=== PATIENT | female | born 1955 | race Caucasian/White ===

== ENCOUNTER 2020-12-27 11:32 | Inpatient (IN) | payer OTHER ==
[~2020-12-27] VITALS: Ht 165.1 cm; Wt 90.2 kg
[~2020-12-27 11:32] MED LIST: ALLERCLEAR D-21 EACH PO; ASPI325 PO; ATEN25 PO; CIPR500 PO; FLUSAL2505 INH; LISI5 PO; [UNRECOGNIZED DRUG - OTHER]; [UNRECOGNIZED DRUG - SUPPLY]
[2020-12-27 13:21] LABS: Alanine Aminotransfer (ALT/SGP 146 U/L (12-78); Albumin, Blood 3.2 g/dL (3.4-5.0); Albumin/Globulin Ratio 0.9 (0.8-1.8); Alk Phos 57 U/L (50-136); Anion Gap 15 mmol/L (6-16); Aspartate Aminotrans (AST/SGOT 184 U/L (12-37); Bilirubin, Total 1.3 mg/dL (0.1-1.0); Blood Urea Nitrogen 9 mg/dL (8-24); Bun/Creatinine Ratio 17.8 (12.0-20.0); CO2, Blood 19 mmol/L (21-32); Calcium, Blood 8.1 mg/dL (8.5-10.1); Chloride, Blood 66 mmol/L (98-108); Creatinine, Blood 0.51 mg/dL (0.40-1.00); Globulin, Blood 3.6 g/dL (2.2-4.0); Glomerular Filtration Rate >60 (60-); Glucose, Blood 141 mg/dL (70-99); Potassium, Blood 2.7 mmol/L (3.5-5.5); Sodium, Blood 100 mmol/L (136-145); Total Protein, Blood 6.8 g/dL (6.4-8.2)
[2020-12-27 14:33] LABS: Magnesium, Blood 1.9 mg/dL (1.6-2.4); Phosphorus, Blood 1.4 mg/dL (2.5-4.9)
[2020-12-27] MEDS ORDERED: LOSA50 PO (14:52)
[2020-12-27] MEDS ORDERED: ATEN50 PO (14:52)
[2020-12-27] MEDS ORDERED: SPIRIVA RESPIMAT4 G3 INH (14:52)
[2020-12-27] MEDS ORDERED: MONT10T PO (14:52)
[2020-12-27 15:32] LABS: BASOPHILS ABSOLUTE AUTO 0.07 K/mm3 (0.00-0.23); BASOPHILS PERCENT AUTO 0 % (0-2); EOSINOPHILS ABSOLUTE AUTO 0.06 K/mm3 (0.00-0.68); EOSINOPHILS PERCENT AUTO 0 % (0-6); Hematocrit 37.2 % (33.0-51.0); IMMATURE GRAN ABSOLUTE AUTO 0.87 K/mm3 (0.00-0.10); IMMATURE GRAN PERCENT AUTO 4 % (0-1); LYMPHOCYTES ABSOLUTE AUTO 1.08 K/mm3 (0.84-5.20); LYMPHOCYTES PERCENT AUTO 5 % (21-46); MONOCYTES ABSOLUTE AUTO 0.89 K/mm3 (0.16-1.47); MONOCYTES PERCENT AUTO 4 % (4-13); Mean Corpuscular Volume 78 fL (80-100); Mean Platelet Volume 10.3 fL (9.1-12.4); NEUTROPHILS ABSOLUTE AUTO 19.69 K/mm3 (1.96-9.15); NEUTROPHILS PERCENT AUTO 87 % (41-73); Platelet Count 228 K/mm3 (150-400); RDW Coefficient Variation 11.7 % (11.7-14.2); RDW Standard Deviation 33.2 fL (35.1-46.3); Red Blood Cell Count 4.77 M/mm3 (3.80-5.20); White Blood Cell Count 22.66 K/mm3 (4.00-11.30)
[2020-12-27 15:38] LABS: Hemoglobin 14.6 g/dL (11.5-16.0); Mean Corpuscular HGB 30.6 pg (26.0-34.0)
[2020-12-27 15:43] LABS: Mean Corpuscular HGB Conc 39.2 g/dL (31.5-36.5)
[2020-12-27 16:01] LABS: Anion Gap 15 mmol/L (6-16); Blood Urea Nitrogen 9 mg/dL (8-24); Bun/Creatinine Ratio 14.5 (12.0-20.0); CO2, Blood 23 mmol/L (21-32); Calcium, Blood 7.8 mg/dL (8.5-10.1); Chloride, Blood 66 mmol/L (98-108); Creatinine, Blood 0.62 mg/dL (0.40-1.00); Glomerular Filtration Rate >60 (60-); Glucose, Blood 122 mg/dL (70-99); Potassium, Blood 2.5 mmol/L (3.5-5.5); Sodium, Blood 104 mmol/L (136-145)
[2020-12-27 19:25] LABS: Anion Gap 18 mmol/L (6-16); Blood Urea Nitrogen 8 mg/dL (8-24); Bun/Creatinine Ratio 17.9 (12.0-20.0); CO2, Blood 20 mmol/L (21-32); Chloride, Blood 69 mmol/L (98-108); Creatinine, Blood 0.45 mg/dL (0.40-1.00); Glomerular Filtration Rate >60 (60-); Glucose, Blood 106 mg/dL (70-99); Potassium, Blood 2.8 mmol/L (3.5-5.5); Sodium, Blood 107 mmol/L (136-145)
[2020-12-27 23:46] LABS: Anion Gap 13 mmol/L (6-16); Blood Urea Nitrogen 7 mg/dL (8-24); Bun/Creatinine Ratio 13.2 (12.0-20.0); CO2, Blood 20 mmol/L (21-32); Calcium, Blood 7.5 mg/dL (8.5-10.1); Chloride, Blood 76 mmol/L (98-108); Creatinine, Blood 0.53 mg/dL (0.40-1.00); Glomerular Filtration Rate >60 (60-); Glucose, Blood 88 mg/dL (70-99); Sodium, Blood 109 mmol/L (136-145)
[2020-12-28 03:35] LABS: BASOPHILS ABSOLUTE AUTO 0.05 K/mm3 (0.00-0.23); BASOPHILS PERCENT AUTO 0 % (0-2); EOSINOPHILS ABSOLUTE AUTO 0.03 K/mm3 (0.00-0.68); EOSINOPHILS PERCENT AUTO 0 % (0-6); Hematocrit 34.8 % (33.0-51.0); IMMATURE GRAN ABSOLUTE AUTO 0.33 K/mm3 (0.00-0.10); IMMATURE GRAN PERCENT AUTO 2 % (0-1); LYMPHOCYTES ABSOLUTE AUTO 1.18 K/mm3 (0.84-5.20); LYMPHOCYTES PERCENT AUTO 6 % (21-46); MONOCYTES ABSOLUTE AUTO 0.83 K/mm3 (0.16-1.47); MONOCYTES PERCENT AUTO 4 % (4-13); Mean Corpuscular Volume 78 fL (80-100); Mean Platelet Volume 9.6 fL (9.1-12.4); NEUTROPHILS ABSOLUTE AUTO 18.85 K/mm3 (1.96-9.15); NEUTROPHILS PERCENT AUTO 89 % (41-73); Platelet Count 194 K/mm3 (150-400); RDW Coefficient Variation 11.9 % (11.7-14.2); RDW Standard Deviation 33.9 fL (35.1-46.3); Red Blood Cell Count 4.45 M/mm3 (3.80-5.20); White Blood Cell Count 21.27 K/mm3 (4.00-11.30)
[2020-12-28 03:36] LABS: Hemoglobin 13.7 g/dL (11.5-16.0); Mean Corpuscular HGB 30.8 pg (26.0-34.0); Mean Corpuscular HGB Conc 39.4 g/dL (31.5-36.5)
[2020-12-28 03:54] LABS: Anion Gap 11 mmol/L (6-16); Blood Urea Nitrogen 6 mg/dL (8-24); Bun/Creatinine Ratio 9.3 (12.0-20.0); CO2, Blood 23 mmol/L (21-32); Calcium, Blood 7.7 mg/dL (8.5-10.1); Chloride, Blood 77 mmol/L (98-108); Creatinine, Blood 0.65 mg/dL (0.40-1.00); Glomerular Filtration Rate >60 (60-); Glucose, Blood 88 mg/dL (70-99); Potassium, Blood 2.9 mmol/L (3.5-5.5); Sodium, Blood 111 mmol/L (136-145)
[2020-12-28 07:31] LABS: Magnesium, Blood 1.9 mg/dL (1.6-2.4)
[2020-12-28 07:37] LABS: Anion Gap 12 mmol/L (6-16); Blood Urea Nitrogen 7 mg/dL (8-24); CO2, Blood 22 mmol/L (21-32); Calcium, Blood 7.8 mg/dL (8.5-10.1); Chloride, Blood 80 mmol/L (98-108); Creatinine, Blood 0.64 mg/dL (0.40-1.00); Glomerular Filtration Rate >60 (60-); Glucose, Blood 106 mg/dL (70-99); Potassium, Blood 3.3 mmol/L (3.5-5.5); Sodium, Blood 114 mmol/L (136-145)
[2020-12-28 12:50] LABS: Anion Gap 9 mmol/L (6-16); Blood Urea Nitrogen 6 mg/dL (8-24); CO2, Blood 23 mmol/L (21-32); Calcium, Blood 8.2 mg/dL (8.5-10.1); Chloride, Blood 80 mmol/L (98-108); Creatinine, Blood 0.67 mg/dL (0.40-1.00); Glomerular Filtration Rate >60 (60-); Glucose, Blood 101 mg/dL (70-99); Potassium, Blood 3.3 mmol/L (3.5-5.5); Sodium, Blood 112 mmol/L (136-145)
[2020-12-28 15:29] LABS: Source, Urine Catheter
[2020-12-28 15:34] LABS: Appearance, Urine Hazy (Clear); Bilirubin, Urine Neg (Neg); Blood, Urine 5+ (Neg); Color, Urine Yellow (P-Yellow); Glucose Qualitative, Urine Neg (Neg); Ketones, Urine 3+ (Neg); Leukocyte Esterase, Urine 3+ (Neg); Nitrite, Urine Pos (Neg); Protein, Urine 3+ (Neg); Urobilinogen, Urine NORM (Normal)
[2020-12-28 15:48] LABS: Bacteria Many /hpf
[2020-12-28 15:50] LABS: Squamous Epithelial Cells Few /hpf (Few)
[2020-12-28 16:03] LABS: Osmolality, Urine 328 mos/kg (15-1400)
[2020-12-28 16:04] LABS: Anion Gap 13 mmol/L (6-16); Blood Urea Nitrogen 7 mg/dL (8-24); Bun/Creatinine Ratio 11.9 (12.0-20.0); CO2, Blood 19 mmol/L (21-32); Chloride, Blood 81 mmol/L (98-108); Creatinine, Blood 0.59 mg/dL (0.40-1.00); Glomerular Filtration Rate >60 (60-); Glucose, Blood 99 mg/dL (70-99); Potassium, Blood 3.3 mmol/L (3.5-5.5); Sodium, Blood 113 mmol/L (136-145)
[2020-12-28 16:17] LABS: Sodium, Urine, Random 11 mmol/L (20-110)
--- NOTE | 2020-12-28 19:03 | NUR ---
SUMMARY Assumed care of pt upon arrival to ICU 4 from emergency department at 1452. Pt transferred from ED [facility] to ICU bed using slider sheet and 2 staff. Pt tolerated transfer well. Pt A&O x 4. Answers questions. Follows commands. Verbalizes needs. Pleasant and cooperative with care. Pt on room air. Lungs clear t/o. Pt has loose cough that is unproductive. SR per monitor. BP high, initially. Call placed to Dr Qiu at 1515 to notify of BP and that orders did not permit for labetalol to be given. New orders received. Additionally gave pt cozaar, which she takes at home. Pt has lee catheter in place. Foul-smelling urine sent for urinalysis. Call placed to Dr Qiu at 1620 to notify of most recent by sodium levels and potassium levels. Provider states he will be in to see pt soon and evaluate if pt need hypertonic saline drip restarted. Call placed to Dr Qiu at 1855 to inquire about diet, notify of urinalysis results, and address sodium, as provider has not been in to see pt today. Provider states plan to see pt soon.
--- NOTE | 2020-12-28 19:30 | NUR ---
ASSUMPTION OF CARE RECEIVED REPORT FROM CHRISTIANO BRANTLEY @ 5455. PT STATED SHE IS VERY TIRED, AND APPEARS LETHARGIC, BUT IS ARROUSABLE AND A&0 X4. DENIES PAIN. LUNGS ARE CLEAR THROUGHOUT, SPO2 AT 97% ON RA. OCCASIONAL, NONPRODUCTIVE COUGH. HR 50-60'S, BP'S ARE HYPERTENSIVE, WILL MONITOR AND TREAT WITH LABETALOL PRN. BOWEL TONES ACTIVE, DENIES NAUSEA/VOMITING. TEMP DE LEON PATENT, DRAINING CLEAR, YELLOW URINE. PHYSICIAN ROUNDED, REPORTED URINALYSIS RESULTS- NO NEW ORDERS. REPORTED POTASSIUM AND SODIUM RESULTS, 3% SALINE STARTED AT 30ML/HR UNTIL REACHES 123. NO NEW ORDERS FOR POTASSIUM. REGULAR DIET ORDERS RECEIVED. CONTINUING TO REVIEW ORDERS AND TREAT PRESCRIBED. CALL LIGHT WITHIN REACH.
[2020-12-28 20:18] LABS: Anion Gap 10 mmol/L (6-16); Blood Urea Nitrogen 9 mg/dL (8-24); CO2, Blood 24 mmol/L (21-32); Calcium, Blood 8.5 mg/dL (8.5-10.1); Chloride, Blood 82 mmol/L (98-108); Creatinine, Blood 0.64 mg/dL (0.40-1.00); Glomerular Filtration Rate >60 (60-); Glucose, Blood 124 mg/dL (70-99); Potassium, Blood 3.2 mmol/L (3.5-5.5); Sodium, Blood 116 mmol/L (136-145)
[2020-12-28 23:35] LABS: Anion Gap 8 mmol/L (6-16); Blood Urea Nitrogen 8 mg/dL (8-24); Bun/Creatinine Ratio 10.8 (12.0-20.0); CO2, Blood 23 mmol/L (21-32); Calcium, Blood 8.3 mg/dL (8.5-10.1); Chloride, Blood 86 mmol/L (98-108); Creatinine, Blood 0.74 mg/dL (0.40-1.00); Glomerular Filtration Rate >60 (60-); Glucose, Blood 93 mg/dL (70-99); Potassium, Blood 3.5 mmol/L (3.5-5.5); Sodium, Blood 117 mmol/L (136-145)
[2020-12-29 03:52] LABS: Anion Gap 9 mmol/L (6-16); Blood Urea Nitrogen 8 mg/dL (8-24); CO2, Blood 21 mmol/L (21-32); Calcium, Blood 8.4 mg/dL (8.5-10.1); Chloride, Blood 92 mmol/L (98-108); Creatinine, Blood 0.67 mg/dL (0.40-1.00); Glomerular Filtration Rate >60 (60-); Glucose, Blood 95 mg/dL (70-99); Potassium, Blood 3.9 mmol/L (3.5-5.5); Sodium, Blood 122 mmol/L (136-145)
--- NOTE | 2020-12-29 06:24 | NUR ---
PT SLEPT THROUGHOUT SHIFT. REMAINED A&O X4. PT APPEARS MORE AWAKE AND ORIENTED SODIUM LEVEL IMPROVED. REMAINS ON ROOM AIR, LUNG SOUNDS CLEAR. OCCASIONAL NONPRODUCTIVE COUGH, ESPECIALLY WITH REPOSITIONING. SR IN 50-60'S. GAVE PRN LABETALOL ONCE FOR HYPERTENSION. TEMP DE LEON PATENT DRAINING CLOUDY, YELLOW, MALODOROUS URINE. AWAITING LAB DRAW AT 0700. WILL CONTINUE TO MONITOR AND REPORT TO ONCOMING RN.
--- NOTE | 2020-12-29 07:26 | NUR ---
ASSUMED CARE PT. RESTING COMFORTABLY IN BED, CURRENTLY ON RA. AWAKENS EASILY TO VERBAL STIMULI. PT. DENIES ANY PAIN AT THIS TIME, RR EVEN UNLABORED. VSS THIS AM, DE LEON IN PLACE DRAINING TO GRAVITY. PT. AFEBRILE. 3 PERCENT SALINE PLACED ON SB THIS AM BY PREVIOUS SHIFT WITH LAB DRAW THIS AM. CALL LIGHT IN REACH, BED IN LOW POSITION.
[2020-12-29 07:27] LABS: Anion Gap 7 mmol/L (6-16); Blood Urea Nitrogen 7 mg/dL (8-24); Bun/Creatinine Ratio 9.3 (12.0-20.0); CO2, Blood 22 mmol/L (21-32); Calcium, Blood 8.2 mg/dL (8.5-10.1); Chloride, Blood 94 mmol/L (98-108); Creatinine, Blood 0.76 mg/dL (0.40-1.00); Glomerular Filtration Rate >60 (60-); Glucose, Blood 98 mg/dL (70-99); Sodium, Blood 123 mmol/L (136-145)
--- NOTE | 2020-12-29 10:07 | NUR ---
Gentry of care Pt is resting in bed with eyes closed. Per report the pt has had a poor appetite and needs encouragement with her meals. Her lee is in place and patent. Heart rhythm shows NSR. Pt is currently on RA with O2 sat at 95%. She is able to make her needs known and has her call light in reach.
--- NOTE | 2020-12-29 16:47 | NUR ---
Shift Summary Pt is a/o x 4 with a flat affect. She Declines repostioning in bed and has a poor appetite so PO intake has been encouraged. Sodium labs were discussed with Dr Qiu who ordered once bag of IV fluids which is running now. She has been hypertensive and the Dr was notified and he restarted her home medication as reflected on the EMAR, she does have a Hx of hypertension noted in the chart. She has been sleeping most of the day and a PT order was placed and we are awaiting the eval. Sandoval is still in place and patent. She is able to make her needs known and has her call light in reach. She is medical status and awaiting a bed and has been notified of the potential room move.
[2020-12-29 19:14] LABS: Anion Gap 9 mmol/L (6-16); Blood Urea Nitrogen 9 mg/dL (8-24); Bun/Creatinine Ratio 10.4 (12.0-20.0); CO2, Blood 22 mmol/L (21-32); Calcium, Blood 8.6 mg/dL (8.5-10.1); Chloride, Blood 95 mmol/L (98-108); Creatinine, Blood 0.86 mg/dL (0.40-1.00); Glomerular Filtration Rate >60 (60-); Glucose, Blood 141 mg/dL (70-99); Potassium, Blood 3.9 mmol/L (3.5-5.5); Sodium, Blood 126 mmol/L (136-145)
[2020-12-30 00:10] LABS: Anion Gap 8 mmol/L (6-16); Blood Urea Nitrogen 10 mg/dL (8-24); Bun/Creatinine Ratio 13.1 (12.0-20.0); CO2, Blood 22 mmol/L (21-32); Calcium, Blood 8.3 mg/dL (8.5-10.1); Chloride, Blood 97 mmol/L (98-108); Creatinine, Blood 0.77 mg/dL (0.40-1.00); Glomerular Filtration Rate >60 (60-); Glucose, Blood 110 mg/dL (70-99); Potassium, Blood 4.1 mmol/L (3.5-5.5); Sodium, Blood 127 mmol/L (136-145)
[2020-12-30 06:24] LABS: Hematocrit 37.7 % (33.0-51.0); Mean Corpuscular HGB 31.1 pg (26.0-34.0); Mean Corpuscular HGB Conc 37.1 g/dL (31.5-36.5); Mean Platelet Volume 9.6 fL (9.1-12.4); Platelet Count 236 K/mm3 (150-400); White Blood Cell Count 13.36 K/mm3 (4.00-11.30)
[2020-12-30 06:36] LABS: Anion Gap 6 mmol/L (6-16); Blood Urea Nitrogen 9 mg/dL (8-24); Bun/Creatinine Ratio 11.5 (12.0-20.0); CO2, Blood 24 mmol/L (21-32); Calcium, Blood 8.1 mg/dL (8.5-10.1); Chloride, Blood 98 mmol/L (98-108); Creatinine, Blood 0.78 mg/dL (0.40-1.00); Glomerular Filtration Rate >60 (60-); Glucose, Blood 103 mg/dL (70-99); Potassium, Blood 4.1 mmol/L (3.5-5.5); Sodium, Blood 128 mmol/L (136-145)
[2020-12-30 06:37] LABS: Mean Corpuscular Volume 84 fL (80-100)
--- NOTE | 2020-12-30 06:37 | NUR ---
PATIENT IS ALERT AND ORIENTED X4, SLOW TO RESPOND AND WHEN SHE STATES THE YEAR SHE ALWAYS SAYS THE WRONG YEAR BUT THEN CORRECTS HERSELF AND IS ABLE TO STATE THE CURRECT YEAR. NEURO UNCHANGED ALL SHIFT. 02 SATS 95% ON RA. DRY COUGH. LABETALOL GIVEN ONCE FOR HIGH BP. ABLE TO REPOSITION SELF, NEEDS VERBAL CUES AT TIMES. DE LEON DRAINING YELLOW CLEAR URINE. VSS, NO ACUTE CHANGES. CALL LIGHT IN REACH.
[2020-12-30 07:28] LABS: BAND PERCENT MAN 4 % (0-8); BASOPHILS PERCENT MAN 0 % (0-2); EOSINOPHILS ABSOLUTE MAN 0.13 K/mm3 (0.00-0.68); EOSINOPHILS PERCENT MAN 1 % (0-6); LYMPHOCYTES ABSOLUTE MAN 0.66 K/mm3 (0.84-5.20); LYMPHOCYTES PERCENT MAN 5 % (21-46); METAMYELOCYTE ABSOLUTE MAN 0.13 K/mm3 (0.00-0.00); METAMYELOCYTE PERCENT MAN 1 % (0-0); MONOCYTES ABSOLUTE MAN 0.66 K/mm3 (0.16-1.47); MONOCYTES PERCENT MAN 5 % (4-13); MYELOCYTE ABSOLUTE MAN 0.13 K/mm3 (0.00-0.00); MYELOCYTE PERCENT MAN 1 % (0-0); NEUTROPHILS ABSOLUTE MAN 11.62 K/mm3 (1.96-9.15); SEG NEUTROPHILS PERCENT MAN 83 % (41-73); TOTAL CELLS COUNTED 100
--- NOTE | 2020-12-30 09:00 | NUR ---
ASSUMED CARE / DR Mely FREDERICK: REPORT RECEIVED FROM RUBY Rowley RN. ASSUMED CARE OF THIS PT AT APPROX 0700. ON ASSESSMENT, THE PT IS AWAKE, PLEASANT & COOPERATIVE. SHE IS ORIENTED TO ALL, BUT DOES RESPOND SLOWLY AT TIMES. LS DIM, FINE CRACKLES IN BASES. PT ON RA W/ O2 SATS > 92%. MONITOR SHOWS SB-SR W/ HR 50-70s, HTN W/ SCHEDULED AM MEDS PER EMAR. THE PT HAS NO GI COMPLAINTS & HAS TOLERATED PO INTAKE WELL THIS AM. TEMP DE LEON PATENT/ DRAINING YELLOW URINE. SKIN CONDITION OVERALL CDI, PT IS ABLE TO REPOSITION SELF IN BED W/ MIN ASSIST OR CUES. PROVIDER AT BEDSIDE THIS AM. HE WOULD LIKE TO HAVE A CTs OF THE PT's CHEST & HEAD COMPLETED TO RULE OUT POSSIBLE CAUSES OF PT's HYPONATREMIA ON ADMISSION. ORDERS PLACED. NO OTHER CHANGES AT THIS TIME. WILL CONTINUE TO MONITOR & UPDATE NEEDED.
[2020-12-30 12:36] LABS: Anion Gap 7 mmol/L (6-16); Blood Urea Nitrogen 10 mg/dL (8-24); Bun/Creatinine Ratio 12.1 (12.0-20.0); CO2, Blood 25 mmol/L (21-32); Calcium, Blood 8.7 mg/dL (8.5-10.1); Chloride, Blood 97 mmol/L (98-108); Creatinine, Blood 0.83 mg/dL (0.40-1.00); Glomerular Filtration Rate >60 (60-); Glucose, Blood 97 mg/dL (70-99); Potassium, Blood 3.9 mmol/L (3.5-5.5); Sodium, Blood 129 mmol/L (136-145)
--- NOTE | 2020-12-30 13:56 | NUR ---
ADMIT:12/27/20 DISCHARGE: DX: Hyponatremia CC: [email or web address] ELLIE CALL: RESIDENCE: Home with Spouse CAREGIVER: Juan C Leal, Spouse / Partner, Ebonie Leal, Child, Andrea Leal, Child, DX: CKD-stage 3, COVID-19, HTN, GERD, HTN, see list DME: none CCM: none HOME HEALTH: none SUMMARY: Updated 12/30/20- per chart review with Dr. Jonh Wolf, pt is improving and CT has been ordered. No plan for discharge. Pt being treated also for COVID and UTI. -linow
--- NOTE | 2020-12-30 18:29 | NUR ---
SHIFT SUMMARY: NO ACUTE CHANGES SINCE PRIOR UPDATES. PT REMAINS A&O, MENTATION CONTINUES IMPROVING & PT's AFFECT NOW LESS FLAT. LS COARSE IN BASES, PT HAVING OCCASIONAL COUGH W/ DEEP BREATHING. ON RA W/ O2 SATS > 92%. MONITOR SHOWS SR W/ HR 70s, BP STABLE. THE PT HAS NO GI COMPLAINTS & HAS TOLERATED PO INTAKE WELL. TEMP DE LEON PATENT/ DRAINING YELLOW URINE. SKIN CONDITION OVERALL CDI W/ Q2H REPOSITIONING COMPLETED EITHER BY PT OR W/ STAFF ASSIST. WILL CONTINUE TO MONITOR & REPORT OFF TO ONCOMING RN.
--- NOTE | 2020-12-31 05:00 | NUR ---
SHIFT SUMMARY PT REPORTS SLEEPING WELL THROUGHOUT NIGHT. PT REMAINS ORIENTED TO SELF, EVENT, YEAR, LOCATION AND FOLLOWING COMMANDS. O2 SATURATIONS> 90% ON RA. MONITOR SHOWS SINUS RHYTHM WITH HR 50'S-60'S, HTN AT BEGINNING OF SHIFT, 10mg LABETALOL x2 ADMINISTERED. PT DENIES GI ISSUES. DE LEON REMAINS IN PLACE. CALL LIGHT REMAINS WITHIN REACH.
[2020-12-31 05:13] LABS: Anion Gap 7 mmol/L (6-16); Blood Urea Nitrogen 12 mg/dL (8-24); Bun/Creatinine Ratio 14.9 (12.0-20.0); CO2, Blood 25 mmol/L (21-32); Calcium, Blood 8.6 mg/dL (8.5-10.1); Chloride, Blood 97 mmol/L (98-108); Creatinine, Blood 0.81 mg/dL (0.40-1.00); Glomerular Filtration Rate >60 (60-); Glucose, Blood 107 mg/dL (70-99); Sodium, Blood 129 mmol/L (136-145)
--- NOTE | 2020-12-31 08:21 | NUR ---
UPDATE ASSUMED CARE AT APPROXIMATELY 0730. PT ALERT AND ORIENTED. VS STABLE. O2 SATS REMAIN ABOVE 90% ON RA. HR NSR. PT DENIES ANY PAIN. DE LEON PATENT AND DRAINING CLEAR YELLOW URINE. PT SITTING UP EATING BREAKFAST. BED ASSIGNMENT PROVIDED. REPORT CALLED TO ROBERT ALVARADO. PT TO BE TAKEN TO 336.
--- NOTE | 2020-12-31 09:12 | NUR ---
Assumed Care Received report from Rafia ICU-RN. Patient transferred to room 336 from ICU 4. Slide transfer to bed. A/O and on RA at time of arrival. Nonproductive hoarse cough noted. Settled to room, call light nearby, bed in lowest position. Sandoval present and draining clear yellow urine. Med tele ordered per transfer order.
--- NOTE | 2020-12-31 10:40 | NUR ---
MED TELE PLACED, VERIFIED BY VALENTIN CRANDALL: JESUS 52
--- NOTE | 2020-12-31 12:38 | NUR ---
HYPERTENSION WITH SBP [address] FREDERICK. BP RECHECK AND FOUND TO BE 174/96 HR 61. NO NEW ORDERS. WILL CONTINUE TO MONITOR.
--- NOTE | 2020-12-31 16:11 | NUR ---
12/31/20- pt has history of COVID, day 15. CT was unremarkable. PT and OT have been ordered. Pt has moved from ICU to medical floor. PT saw pt today and are recommending SNF. Prior to coming into the hospital, pt was independent. She lives at home with her spouse in a home that has multiple stairs to get into the home. FWW has been ordered for the pt. -kjw
--- NOTE | 2020-12-31 16:46 | NUR ---
Shift Summary A/Ox3, pleasant and cooperative. Remains fairly weak, worked with PT this shift (see PT note). Denies pain, nausea. No shortness of breath, unlabored breathing. Received V.O. from Dr. Wolf to d/c jesus and d/c NS @ 75. Dr. Wolf is aware of hypertension. Tele placed. No acute changes since assumed care, WCTM.
--- NOTE | 2021-01-01 04:06 | NUR ---
SHIFT SUMMARY: PT IS ALERT AND ORIENTED WITH MINOR CONFUSION. PT IS CALM AND COOPERATIVE WITH CARE, FLAT AFFECT AND A LITTLE SLOW TO RESPOND. PT IS A ONE ASSIST TO THE BATHROOM W/ FWW. PT HAVING HTN, MEDICATING PER EMAR. PT DENIES PAIN, NAUSEA, VOMITING, AND SOB. BED IN LOW POSITION, CALL LIGHT WITHIN REACH. WILL CONTINUE TO MONITOR AND REPORT TO DAY NURSE.
[2021-01-01 07:17] LABS: Anion Gap 10 mmol/L (6-16); Blood Urea Nitrogen 14 mg/dL (8-24); Bun/Creatinine Ratio 19.9 (12.0-20.0); CO2, Blood 24 mmol/L (21-32); Calcium, Blood 9.1 mg/dL (8.5-10.1); Chloride, Blood 95 mmol/L (98-108); Glomerular Filtration Rate >60 (60-); Glucose, Blood 147 mg/dL (70-99); Sodium, Blood 129 mmol/L (136-145)
--- NOTE | 2021-01-01 09:14 | NUR ---
LEFT MESSAGE ON VOICE MAIL; PATIENT KNOWS FIRST NAME, COULD NOT TELL ME HER DATE OF OR LAST NAME. DOES NOT KNOW WHERE SHE IS. 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 RESPONDED WITH [employer]. STS LIVES WITH . WHEN ASKED IF SHE STILL WORKS SAYS YES, BUT CAN NOT TELL ME WHAT SHE DOES AND SAYS WORKS AT "[employer]." UNSURE IF THIS IS ALL NEW OR IF THIS HAS BEEN HER MENTATION. ILDA
--- NOTE | 2021-01-01 13:15 | NUR ---
Echocardiogram performed.
--- NOTE | 2021-01-01 15:49 | NUR ---
01/01/21- per chart review, pt has expressed increase of confusion, nurse notified Dr. Wolf. PT worked with pt and it's noted increase weakness and BP was 207/93. PT is recommending SNF at discharge. CT of chest shows pneumonia. Echo has been ordered and completed. No plan for d/c- kjw
--- NOTE | 2021-01-01 16:25 | NUR ---
ALERT TO SELF. COULD NOT TELL ME HER . APPEARS ABIT "FOGGY". PER P.T. AND DR. FREDERICK SHE WAS A LITTLE BETTER YESTERDAY MENTATION VALENTIN. DENIES PAIN. ON 2LPM. TELE HAS BEEN SR. POOR APPETITE. WCTM
--- NOTE | 2021-01-01 19:24 | NUR ---
RECEIVED REPORT FROM CHRISTIANO VALVERDE.
--- NOTE | 2021-01-02 03:00 | NUR ---
PT DENIED THE NEED TO USE BSC. CALL LT IN REACH.
--- NOTE | 2021-01-02 03:42 | NUR ---
SHIFT SUMMARY: ALERT TO NAME ONLY. ANSWERS "OK" TO ALL QUESTIONS SLOWLY. DOES NOT FOLLOW DIRECTIONS, ANSWERS "OK", CONSTANTLY. DOES NOT APPEAR TO BE IN PAIN OR DISTRESS. ON RA. TOOK MEDS WHOLE WITH SIPS OF WATER. RESTED WELL. REFUSED TOILETING DURING SHIFT. NO ACUTE CHANGES. LAST NA 129. SALINE LOCKED. SR AT 66 ON TELE. WILL CONTINUE TO PROVIDE CARE T/O SHIFT. CALL LT IN REACH.
[2021-01-02 06:27] LABS: Anion Gap 8 mmol/L (6-16); Blood Urea Nitrogen 19 mg/dL (8-24); Bun/Creatinine Ratio 22.6 (12.0-20.0); CO2, Blood 25 mmol/L (21-32); Calcium, Blood 9.7 mg/dL (8.5-10.1); Chloride, Blood 98 mmol/L (98-108); Creatinine, Blood 0.84 mg/dL (0.40-1.00); Glomerular Filtration Rate >60 (60-); Glucose, Blood 110 mg/dL (70-99); Potassium, Blood 3.9 mmol/L (3.5-5.5); Sodium, Blood 131 mmol/L (136-145)
--- NOTE | 2021-01-02 16:42 | NUR ---
01/02/21- PER CHART REVIEW WITH DR. FREDERICK, PLAN IS TO ORDER MRI OF HEAD. THERE ARE ALSO SOCIAL CONCERNS REGARDING AND LACK OF COMMUNICATION. -WILLIAM
--- NOTE | 2021-01-02 18:06 | NUR ---
SHIFT SUMMARY PT AXO TO SELF BUT VERY SLOW TO RESPOND AND ANSWERS "OKAY" TO MOST QUESTIONS. MRI THIS SHIFT, SEE RESULTS. MRI QUESTIONS COMPLETED WITH PATIENT'S SPOUSE ON THE PHONE. DR FREDERICK GIVEN SPOUSE'S CORRECT PHONE NUMBER. PT UP TO BSC WITH 2 ASSIST, FWW AND GB. ON TELE, NSR IN 60'S. BED IN LOW POSITION, CALL LIGHT WITHIN REACH, BED ALARM ON. SWALLOW EVAL ORDERED THIS SHIFT THOUGH PT TOLERATING NECTAR THICK VIA SPOON, NO STRAWS, MEDS ONE AT A TIME IN APPLESAUCE NO THIN LIQUIDS. THIS DIET ORDERED PER DR. FREDERICK. 93% ON RA
--- NOTE | 2021-01-03 01:34 | NUR ---
REPORT GIVEN TO JENNIFER ALVARADO. PATIENT AWAKE, DOES NOT ANSWER ORIENTATION QUESTIONS. IV FLUIDS ORDERED TONIGHT, INITIATED PER ORDERS. PATIENT BEGAN HAVING DEEP COUGH, NON PRODUCTIVE THIS SHIFT. BED LOW AND LOCKED, CALL LIGHT WITHIN REACH, BED ALARM SET.
--- NOTE | 2021-01-03 02:01 | NUR ---
RECEIVED REPORT FROM CHRISTIANO ADAMS. PT LYING IN BED WITH IVF INFUSING. WILL CONTINUE TO PROVIDE CARE. CALL LT IN REACH.
--- NOTE | 2021-01-03 04:10 | NUR ---
SHIFT SUMMARY: APPPEARS MORE ALERT AND A LITTLE BIT MORE VERBAL THIS SHIFT. USING TWO WORDS VS. ONE WORD RESPONSES. CONT IVF INFUSING. ON RA. SR 77 ON TELE. NO ACUTE CHANGES. STILL SLOW TO RESPOND VERBALLLY. WILL CONTINUE TO PROVIDE CARE UNTIL SHIFT REPORT.
[2021-01-03 05:52] LABS: BASOPHILS ABSOLUTE AUTO 0.03 K/mm3 (0.00-0.23); BASOPHILS PERCENT AUTO 0 % (0-2); EOSINOPHILS ABSOLUTE AUTO 0.01 K/mm3 (0.00-0.68); EOSINOPHILS PERCENT AUTO 0 % (0-6); Hemoglobin 14.5 g/dL (11.5-16.0); IMMATURE GRAN ABSOLUTE AUTO 0.42 K/mm3 (0.00-0.10); IMMATURE GRAN PERCENT AUTO 3 % (0-1); LYMPHOCYTES ABSOLUTE AUTO 1.97 K/mm3 (0.84-5.20); LYMPHOCYTES PERCENT AUTO 15 % (21-46); MONOCYTES ABSOLUTE AUTO 1.15 K/mm3 (0.16-1.47); MONOCYTES PERCENT AUTO 9 % (4-13); Mean Corpuscular HGB 30.9 pg (26.0-34.0); Mean Corpuscular HGB Conc 34.5 g/dL (31.5-36.5); Mean Corpuscular Volume 89 fL (80-100); Mean Platelet Volume 8.8 fL (9.1-12.4); NEUTROPHILS ABSOLUTE AUTO 10.02 K/mm3 (1.96-9.15); NEUTROPHILS PERCENT AUTO 74 % (41-73); Platelet Count 333 K/mm3 (150-400); RDW Coefficient Variation 13.7 % (11.7-14.2)
[2021-01-03 06:16] LABS: Alanine Aminotransfer (ALT/SGP 96 U/L (12-78); Albumin, Blood 3.3 g/dL (3.4-5.0); Albumin/Globulin Ratio 0.8 (0.8-1.8); Alk Phos 56 U/L (50-136); Anion Gap 9 mmol/L (6-16); Aspartate Aminotrans (AST/SGOT 32 U/L (12-37); Bilirubin, Total 0.5 mg/dL (0.1-1.0); Blood Urea Nitrogen 23 mg/dL (8-24); Bun/Creatinine Ratio 27.6 (12.0-20.0); CO2, Blood 22 mmol/L (21-32); Calcium, Blood 9.3 mg/dL (8.5-10.1); Chloride, Blood 101 mmol/L (98-108); Creatinine, Blood 0.83 mg/dL (0.40-1.00); Glomerular Filtration Rate >60 (60-); Glucose, Blood 151 mg/dL (70-99); Potassium, Blood 3.9 mmol/L (3.5-5.5); Sodium, Blood 132 mmol/L (136-145); Total Protein, Blood 7.3 g/dL (6.4-8.2)
--- NOTE | 2021-01-03 12:30 | NUR ---
01/03/21- Per chart review, pt has severe neurologic declined, severe hyponatremia and poor prognosis. No discharge plan at this time-madan
--- NOTE | 2021-01-03 18:48 | NUR ---
SHIFT SUMMARY. ALERT, LETHARGIC, NONVERBAL, DOES NOT FOLLOW COMMANDS, HAS BEEN IN BED AND INCONTINENT ALL SHIFT. FAILED SPEECH EVAL, NPO EXCEPT FOR MEDS CRUSHED IN APPLESAUCE. THIS AFTERNOON PT FOUND WITH FIXED GAZE UP TO THE LEFT, PUPILS DILATED 5MM ALTHOUGH REACTIVE TO LIGHT. VSS. DR. KAUFFMAN NOTIFIED OF CHANGE IN CONDITION, SHE WENT TO BEDSIDE FOR EVAL WITH THIS RN, STAT CT ORDERED AND COMPLETED, PENDING RESULTS. THIS RN AND MD SPOKE WITH VIA PHONE, PALLIATIVE CARE SPOKE WITH DAUGHTER VIA PHONE. PT REMAINS FULL CODE.
--- NOTE | 2021-01-03 18:56 | NUR ---
Called to see pt for worsening status. Pt minimally responsive airway patient but some clenching pupils large and trying to look at you but deviate to right. no response to palpation of abdomen. GCS 10 review of symptoms and renal function. pt has similar episode a few years ago with infection with hypertension. Repeat ct and am labs. Updated family of needs physician discussed code status pt will remain full code.
--- NOTE | 2021-01-04 05:06 | NUR ---
SHIFT SUMMARY- PT. AWAKE, NONVERBAL, UNABLE TO FOLLOW COMMANDS DURING THE NIGHT. ON BEDREST, REPOSITIONED FOR COMFORT/PRN. INCONT, ATTENDS IN PLACE. TOLERATED MEDS CRUSHED IN APPLESAUCE WELL. PERFORMED ORAL SUCTIONED PER ORDER. PT. APPEARED COMFORTABLE T/O THE NIGHT, NO APPARENT DISTRESS NOTED. CALL LIGHT WTIHIN REACH, SIDE RAILS UPX3, AND BED ALARM ON FOR SAFETY. WILL CONT TO MONITOR.
[2021-01-04 06:10] LABS: BASOPHILS ABSOLUTE AUTO 0.06 K/mm3 (0.00-0.23); BASOPHILS PERCENT AUTO 0 % (0-2); EOSINOPHILS PERCENT AUTO 0 % (0-6); Hematocrit 46.3 % (33.0-51.0); Hemoglobin 15.7 g/dL (11.5-16.0); IMMATURE GRAN ABSOLUTE AUTO 0.23 K/mm3 (0.00-0.10); IMMATURE GRAN PERCENT AUTO 2 % (0-1); LYMPHOCYTES ABSOLUTE AUTO 2.31 K/mm3 (0.84-5.20); LYMPHOCYTES PERCENT AUTO 15 % (21-46); MONOCYTES ABSOLUTE AUTO 1.52 K/mm3 (0.16-1.47); MONOCYTES PERCENT AUTO 10 % (4-13); Mean Corpuscular HGB 30.9 pg (26.0-34.0); Mean Corpuscular HGB Conc 33.9 g/dL (31.5-36.5); Mean Corpuscular Volume 91 fL (80-100); Mean Platelet Volume 8.8 fL (9.1-12.4); NEUTROPHILS PERCENT AUTO 73 % (41-73); Platelet Count 392 K/mm3 (150-400); RDW Coefficient Variation 13.7 % (11.7-14.2); RDW Standard Deviation 45.5 fL (35.1-46.3); Red Blood Cell Count 5.08 M/mm3 (3.80-5.20); White Blood Cell Count 15.52 K/mm3 (4.00-11.30)
[2021-01-04 06:12] LABS: Albumin, Blood 3.7 g/dL (3.4-5.0); Albumin/Globulin Ratio 0.9 (0.8-1.8); Bilirubin, Total 0.8 mg/dL (0.1-1.0); Bun/Creatinine Ratio 25.2 (12.0-20.0); Calcium, Blood 9.3 mg/dL (8.5-10.1); Creatinine, Blood 1.03 mg/dL (0.40-1.00); Potassium, Blood 4.3 mmol/L (3.5-5.5); Total Protein, Blood 7.7 g/dL (6.4-8.2)
--- NOTE | 2021-01-04 17:34 | NUR ---
PT OPENS EYES TO VERBAL STIMULI AND STARES TO THE RIGHT, THE PT IS NON VERBAL. MOANS WITH TURNING AND OTHER TOUCH STIMULI. THE PT WAS TURNED T/O THE DAY. THE PT WAS SUCTIONED T/O THE DAY. SPEECH THERAPIST EVALUATED THE PT THIS AM THE PT WOULD NOT TAKE ANYTHING PO. THE PT WAS FROTHY AT THE MOUTH SUCTION WAS PROVIDED NEEDED. THE PT SON WAS IN TO SEE HER TODAY AND WAS ABLE TO SPEAK WITH DR. KAUFFMAN REGARDING THE PTS CONDITION. HOB > 45 DEGREE. WILL CONTINUE TO MONITOR AND ASSESS FOR CHANGES
[2021-01-05 05:43] LABS: BASOPHILS ABSOLUTE AUTO 0.05 K/mm3 (0.00-0.23); BASOPHILS PERCENT AUTO 1 % (0-2); EOSINOPHILS PERCENT AUTO 0 % (0-6); Hematocrit 42.5 % (33.0-51.0); IMMATURE GRAN ABSOLUTE AUTO 0.09 K/mm3 (0.00-0.10); IMMATURE GRAN PERCENT AUTO 1 % (0-1); LYMPHOCYTES ABSOLUTE AUTO 2.07 K/mm3 (0.84-5.20); LYMPHOCYTES PERCENT AUTO 19 % (21-46); MONOCYTES PERCENT AUTO 12 % (4-13); Mean Corpuscular HGB 30.2 pg (26.0-34.0); Mean Corpuscular HGB Conc 32.9 g/dL (31.5-36.5); Mean Corpuscular Volume 92 fL (80-100); Mean Platelet Volume 8.7 fL (9.1-12.4); NEUTROPHILS ABSOLUTE AUTO 7.17 K/mm3 (1.96-9.15); NEUTROPHILS PERCENT AUTO 67 % (41-73); Platelet Count 319 K/mm3 (150-400); RDW Standard Deviation 46.6 fL (35.1-46.3); Red Blood Cell Count 4.64 M/mm3 (3.80-5.20); White Blood Cell Count 10.68 K/mm3 (4.00-11.30)
[2021-01-05 06:22] LABS: Albumin, Blood 3.2 g/dL (3.4-5.0); Albumin/Globulin Ratio 0.8 (0.8-1.8); Bun/Creatinine Ratio 29.4 (12.0-20.0); Calcium, Blood 9.2 mg/dL (8.5-10.1); Creatinine, Blood 1.09 mg/dL (0.40-1.00); Globulin, Blood 3.9 g/dL (2.2-4.0); Potassium, Blood 4.1 mmol/L (3.5-5.5); Total Protein, Blood 7.1 g/dL (6.4-8.2)
[2021-01-05 12:23] LABS: Calcium, Blood 8.9 mg/dL (8.5-10.1); Creatinine, Blood 0.94 mg/dL (0.40-1.00)
--- NOTE | 2021-01-05 17:27 | NUR ---
PT OPENS EYES TO VERBAL STIMULI OR NOISE. DOES NOT MAKE GOOD EYE CONTACT. THE PT MOANS THOUGH SHE MIGHT BE TRYING TO COMMUNICATE AT TIMES. THE PT APPEARS TO BE MORE ALERT TODAY COMPARED TO YESTERDAY. THE PT HAS MORE OF A COUGH TODAY COMPARED TO YESTERDAY. BREATH SOUNDS HAD FINE CRACKLES HEARD PT APPEARS TO BE BREATHING EASILY ON RA AT THIS TIME SAT'S > 90%. PTS FAMILY WAS IN TO SEE THE PT DR. KAUFFMAN TALKED WITH THE FAMILY ABOUT THE TX PLAN. PT WAS REPOSITIONED T/O THE DAY, A BED BATH WAS GIVEN. ORAL CARE WAS GIVEN. PT IS NPO DUE TO ASPIRATION RISK, HEAD OF BED ELEVATED TO 45 DEGREE. WILL CONTINUE TO MONITOR FOR CHANGES
[2021-01-05 18:05] LABS: Anion Gap 9 mmol/L (6-16); Blood Urea Nitrogen 33 mg/dL (8-24); Bun/Creatinine Ratio 35.8 (12.0-20.0); CO2, Blood 21 mmol/L (21-32); Chloride, Blood 106 mmol/L (98-108); Creatinine, Blood 0.92 mg/dL (0.40-1.00); Glomerular Filtration Rate >60 (60-); Glucose, Blood 104 mg/dL (70-99); Potassium, Blood 4.6 mmol/L (3.5-5.5); Sodium, Blood 136 mmol/L (136-145)
--- NOTE | 2021-01-05 20:35 | NUR ---
PT DOES NOT TRACK WITH HER EYES. PT IS NON-VERBAL. EYES OPEN. PT MOANS WITH TURNING/REPOSITIONING. PT IS NPO. PHIL - PUPILS 5MM. TELE IN PLACE, NSR AT 85. ATTENDS IN PLACE. PT DOES NOT RESPOND TO VERBAL COMMUNICATION. BED IN LOW POSITION. BED ALARM ON FOR PT SAFETY.
[2021-01-06 05:57] LABS: BASOPHILS ABSOLUTE AUTO 0.05 K/mm3 (0.00-0.23); BASOPHILS PERCENT AUTO 1 % (0-2); EOSINOPHILS ABSOLUTE AUTO 0.01 K/mm3 (0.00-0.68); EOSINOPHILS PERCENT AUTO 0 % (0-6); Hematocrit 41.6 % (33.0-51.0); Hemoglobin 13.9 g/dL (11.5-16.0); IMMATURE GRAN ABSOLUTE AUTO 0.04 K/mm3 (0.00-0.10); IMMATURE GRAN PERCENT AUTO 1 % (0-1); LYMPHOCYTES ABSOLUTE AUTO 1.51 K/mm3 (0.84-5.20); LYMPHOCYTES PERCENT AUTO 21 % (21-46); MONOCYTES ABSOLUTE AUTO 0.92 K/mm3 (0.16-1.47); MONOCYTES PERCENT AUTO 13 % (4-13); Mean Corpuscular HGB 30.8 pg (26.0-34.0); Mean Corpuscular HGB Conc 33.4 g/dL (31.5-36.5); Mean Corpuscular Volume 92 fL (80-100); Mean Platelet Volume 9.2 fL (9.1-12.4); NEUTROPHILS ABSOLUTE AUTO 4.83 K/mm3 (1.96-9.15); NEUTROPHILS PERCENT AUTO 66 % (41-73); Platelet Count 323 K/mm3 (150-400); RDW Coefficient Variation 13.8 % (11.7-14.2); RDW Standard Deviation 46.6 fL (35.1-46.3); Red Blood Cell Count 4.52 M/mm3 (3.80-5.20); White Blood Cell Count 7.36 K/mm3 (4.00-11.30)
[2021-01-06 06:15] LABS: Anion Gap 10 mmol/L (6-16); Blood Urea Nitrogen 29 mg/dL (8-24); Bun/Creatinine Ratio 34.6 (12.0-20.0); CO2, Blood 19 mmol/L (21-32); Calcium, Blood 9.1 mg/dL (8.5-10.1); Chloride, Blood 105 mmol/L (98-108); Creatinine, Blood 0.84 mg/dL (0.40-1.00); Glomerular Filtration Rate >60 (60-); Glucose, Blood 131 mg/dL (70-99); Potassium, Blood 3.7 mmol/L (3.5-5.5); Sodium, Blood 134 mmol/L (136-145)
--- NOTE | 2021-01-06 11:12 | NUR ---
Update 01/06/21- per chart review, pt still has AMS secondary to severity of admitting diagnosis. It is noted that pt continues to deteriorate neurologically. Dr. Jiménez has consulted with [facility] neurologist. -madan
[2021-01-06 13:13] LABS: Anion Gap 10 mmol/L (6-16); Blood Urea Nitrogen 28 mg/dL (8-24); Bun/Creatinine Ratio 35.3 (12.0-20.0); CO2, Blood 19 mmol/L (21-32); Chloride, Blood 106 mmol/L (98-108); Creatinine, Blood 0.79 mg/dL (0.40-1.00); Glomerular Filtration Rate >60 (60-); Glucose, Blood 104 mg/dL (70-99); Potassium, Blood 3.8 mmol/L (3.5-5.5); Sodium, Blood 135 mmol/L (136-145)
--- NOTE | 2021-01-06 16:29 | NUR ---
PT IS ALERT, OPENS EYES TO VERBAL STIMULI. APPEARS TO BE TRACKING MORE TODAY COMPARED TO YESTERDAY. REMAINS NON VERBAL AT THIS TIME,. THE PT DID HAVE SOME WEAK RECEPTIONIST SCHEDULER ON THE RIGHT SIDE DURING THIS AM ASSESSMENT. PT APPEARS TO BE BREATHING EASILY ON RA AT THIS TIME. THE PT WAS REPOSITIONED T/O THE DAY. THE PTS IS AT THE BEDSIDE AT THIS TIME. CALL LIGHT IN REACH, WILL CONTINUE TO MONITOR AND ASSESS FOR CHANGES
--- NOTE | 2021-01-06 17:09 | NUR ---
ISOLATION PRECAUTION PT HAS BEEN QUARANTINED THE EXPECTED TIME. PER DR COKER IT IS OK TO DC ISOLATION TODAY
[2021-01-06 18:29] LABS: Osmolality, Serum 287 mos/KG (275-300)
[2021-01-06 18:46] LABS: Albumin, Blood 3.2 g/dL (3.4-5.0); Anion Gap 10 mmol/L (6-16); Blood Urea Nitrogen 28 mg/dL (8-24); Bun/Creatinine Ratio 34.9 (12.0-20.0); CO2, Blood 19 mmol/L (21-32); Calcium, Blood 8.9 mg/dL (8.5-10.1); Chloride, Blood 106 mmol/L (98-108); Glomerular Filtration Rate >60 (60-); Glucose, Blood 118 mg/dL (70-99); Magnesium, Blood 2.2 mg/dL (1.6-2.4); Potassium, Blood 3.6 mmol/L (3.5-5.5); Sodium, Blood 135 mmol/L (136-145)
[2021-01-06 19:11] LABS: PCO2 Arterial 27.8 mmHg (35-45); PO2 Arterial 78.5 mmHg (80-100); pH Blood Arterial 7.46 (7.35-7.45)
[2021-01-06 21:02] LABS: Anion Gap 10 mmol/L (6-16); Blood Urea Nitrogen 27 mg/dL (8-24); Bun/Creatinine Ratio 34.8 (12.0-20.0); CO2, Blood 20 mmol/L (21-32); Calcium, Blood 8.8 mg/dL (8.5-10.1); Chloride, Blood 106 mmol/L (98-108); Creatinine, Blood 0.78 mg/dL (0.40-1.00); Glomerular Filtration Rate >60 (60-); Glucose, Blood 139 mg/dL (70-99); Potassium, Blood 3.7 mmol/L (3.5-5.5); Sodium, Blood 136 mmol/L (136-145)
--- NOTE | 2021-01-06 21:33 | NUR ---
review of pt with nursing will follow up with family on plan of care.
[2021-01-07 05:29] LABS: BASOPHILS ABSOLUTE AUTO 0.07 K/mm3 (0.00-0.23); BASOPHILS PERCENT AUTO 1 % (0-2); EOSINOPHILS ABSOLUTE AUTO 0.01 K/mm3 (0.00-0.68); EOSINOPHILS PERCENT AUTO 0 % (0-6); Hematocrit 38.8 % (33.0-51.0); Hemoglobin 12.9 g/dL (11.5-16.0); IMMATURE GRAN ABSOLUTE AUTO 0.04 K/mm3 (0.00-0.10); IMMATURE GRAN PERCENT AUTO 1 % (0-1); LYMPHOCYTES ABSOLUTE AUTO 1.38 K/mm3 (0.84-5.20); LYMPHOCYTES PERCENT AUTO 17 % (21-46); MONOCYTES ABSOLUTE AUTO 0.83 K/mm3 (0.16-1.47); MONOCYTES PERCENT AUTO 10 % (4-13); Mean Corpuscular HGB 30.2 pg (26.0-34.0); Mean Corpuscular HGB Conc 33.2 g/dL (31.5-36.5); Mean Corpuscular Volume 91 fL (80-100); Mean Platelet Volume 9.2 fL (9.1-12.4); NEUTROPHILS ABSOLUTE AUTO 5.82 K/mm3 (1.96-9.15); NEUTROPHILS PERCENT AUTO 71 % (41-73); Platelet Count 291 K/mm3 (150-400); RDW Coefficient Variation 13.5 % (11.7-14.2); RDW Standard Deviation 44.5 fL (35.1-46.3); Red Blood Cell Count 4.27 M/mm3 (3.80-5.20); White Blood Cell Count 8.15 K/mm3 (4.00-11.30)
[2021-01-07 05:48] LABS: Alanine Aminotransfer (ALT/SGP 111 U/L (12-78); Albumin, Blood 3.1 g/dL (3.4-5.0); Albumin/Globulin Ratio 0.8 (0.8-1.8); Alk Phos 60 U/L (50-136); Anion Gap 10 mmol/L (6-16); Aspartate Aminotrans (AST/SGOT 37 U/L (12-37); Bilirubin, Direct 0.2 mg/dL (0.0-0.3); Bilirubin, Indirect 0.9 mg/dL (0.1-0.7); Bilirubin, Total 1.1 mg/dL (0.1-1.0); Blood Urea Nitrogen 23 mg/dL (8-24); Bun/Creatinine Ratio 30.1 (12.0-20.0); CO2, Blood 20 mmol/L (21-32); Calcium, Blood 8.5 mg/dL (8.5-10.1); Chloride, Blood 104 mmol/L (98-108); Creatinine, Blood 0.76 mg/dL (0.40-1.00); Globulin, Blood 3.7 g/dL (2.2-4.0); Glomerular Filtration Rate >60 (60-); Glucose, Blood 121 mg/dL (70-99); Magnesium, Blood 2.2 mg/dL (1.6-2.4); Phosphorus, Blood 2.7 mg/dL (2.5-4.9); Potassium, Blood 3.4 mmol/L (3.5-5.5); Sodium, Blood 134 mmol/L (136-145); Total Protein, Blood 6.8 g/dL (6.4-8.2)
--- NOTE | 2021-01-07 06:07 | NUR ---
SHIFT SUMMARY OPENS EYES & TURNS HEAD TO VERBAL STIMULI LAST NIGHT, EVEN TRACKED THIS NURSE FROM ONE SIDE OF THE BED TO THE OTHER WHEN STATED PTS NAME. HOWEVER THIS AM PT HAS BLANK STARE & DOESNT BLINK OR VISUALLY TRACK TO VERBAL STIMULI. NONVERBAL. DOESN'T FOLLOW DIRECTIONS. HAD SLIGHT BEVEL POLISHER c HANDS LAST NIGHT & NO LONGER ABLE TO BEVEL POLISHER THIS AM. MOVES BLE ON OWN OCCASIONALLY. PUPILS 5MM, REACT TO LIGHT. VSS. INCONT OF URINE. NPO. D5 RUNNING @50ML/HR. CALL LIGHT & BED ALARM IN PLACE.
[2021-01-07 13:00] LABS: Anion Gap 9 mmol/L (6-16); Blood Urea Nitrogen 21 mg/dL (8-24); Bun/Creatinine Ratio 28.4 (12.0-20.0); CO2, Blood 20 mmol/L (21-32); Chloride, Blood 103 mmol/L (98-108); Creatinine, Blood 0.74 mg/dL (0.40-1.00); Glomerular Filtration Rate >60 (60-); Glucose, Blood 133 mg/dL (70-99); Potassium, Blood 3.8 mmol/L (3.5-5.5); Sodium, Blood 132 mmol/L (136-145)
--- NOTE | 2021-01-07 18:28 | NUR ---
Update 01/07/21: Per chart review with Dr. Jain this am, pt. likely to need SNF. PT. requested to evaluate. Pt. unable to participate with PT. Possibility that she will need ICF level care. I have notified [facility] that pt. has potential to D/C to SNF or ICF. I put together packet for review and will hold on to for now. Pt. has for insurance. It does not appear that pt. is long-term care benefits. hearing screen coordinator Kamala has been working with pt. prior to today. I am unsure if the family has discussed applying for medicaid. Will discuss further with Kamala tomorrow or contact family.
--- NOTE | 2021-01-07 19:33 | NUR ---
SHIFT SUMMARY PT HAS BEEN SLEEPING THIS AFTERNOON. PT WAS AWAKE THIS AM BUT NO RESPONSE. CLINIMIX INFUSING PER ORDERS. PT RECEIVED HYDRALAZINE THIS AM AND THIS EVENING FOR HTN. NO ACUTE CHANGES AT THIS TIME. REPORT GIVEN TO JOSEFA RN. CALL LIGHT IN REACH. REPORT GIVEN TO JOSEFA RN.
[2021-01-07 21:07] LABS: Anion Gap 9 mmol/L (6-16); Blood Urea Nitrogen 23 mg/dL (8-24); CO2, Blood 20 mmol/L (21-32); Calcium, Blood 9.2 mg/dL (8.5-10.1); Chloride, Blood 105 mmol/L (98-108); Creatinine, Blood 0.89 mg/dL (0.40-1.00); Glomerular Filtration Rate >60 (60-); Glucose, Blood 136 mg/dL (70-99); Potassium, Blood 3.6 mmol/L (3.5-5.5); Sodium, Blood 134 mmol/L (136-145)
[2021-01-08 05:02] LABS: BASOPHILS ABSOLUTE AUTO 0.04 K/mm3 (0.00-0.23); BASOPHILS PERCENT AUTO 0 % (0-2); EOSINOPHILS PERCENT AUTO 0 % (0-6); Hematocrit 39.6 % (33.0-51.0); Hemoglobin 13.5 g/dL (11.5-16.0); IMMATURE GRAN ABSOLUTE AUTO 0.05 K/mm3 (0.00-0.10); IMMATURE GRAN PERCENT AUTO 0 % (0-1); LYMPHOCYTES ABSOLUTE AUTO 0.96 K/mm3 (0.84-5.20); LYMPHOCYTES PERCENT AUTO 7 % (21-46); MONOCYTES ABSOLUTE AUTO 0.83 K/mm3 (0.16-1.47); MONOCYTES PERCENT AUTO 6 % (4-13); Mean Corpuscular HGB Conc 34.1 g/dL (31.5-36.5); Mean Corpuscular Volume 91 fL (80-100); Mean Platelet Volume 9.3 fL (9.1-12.4); NEUTROPHILS ABSOLUTE AUTO 11.25 K/mm3 (1.96-9.15); NEUTROPHILS PERCENT AUTO 86 % (41-73); Platelet Count 339 K/mm3 (150-400); RDW Coefficient Variation 13.7 % (11.7-14.2); RDW Standard Deviation 45.3 fL (35.1-46.3); Red Blood Cell Count 4.35 M/mm3 (3.80-5.20); White Blood Cell Count 13.13 K/mm3 (4.00-11.30)
[2021-01-08 05:23] LABS: Alanine Aminotransfer (ALT/SGP 100 U/L (12-78); Albumin, Blood 3.2 g/dL (3.4-5.0); Albumin/Globulin Ratio 0.8 (0.8-1.8); Alk Phos 64 U/L (50-136); Anion Gap 11 mmol/L (6-16); Aspartate Aminotrans (AST/SGOT 32 U/L (12-37); Blood Urea Nitrogen 25 mg/dL (8-24); Bun/Creatinine Ratio 26.7 (12.0-20.0); CO2, Blood 19 mmol/L (21-32); Calcium, Blood 8.8 mg/dL (8.5-10.1); Chloride, Blood 106 mmol/L (98-108); Creatinine, Blood 0.94 mg/dL (0.40-1.00); Globulin, Blood 4.1 g/dL (2.2-4.0); Glomerular Filtration Rate >60 (60-); Glucose, Blood 180 mg/dL (70-99); Magnesium, Blood 2.2 mg/dL (1.6-2.4); Phosphorus, Blood 2.9 mg/dL (2.5-4.9); Potassium, Blood 3.9 mmol/L (3.5-5.5); Sodium, Blood 136 mmol/L (136-145); Total Protein, Blood 7.3 g/dL (6.4-8.2)
--- NOTE | 2021-01-08 07:00 | NUR ---
SHIFT SUMMARY DID NOT OPEN EYES TO VERBAL STIMULI LAST NIGHT, THIS AM PT WILL OPEN EYES & TURN HEAD TOWARDS VERBAL STIMULI. NONVERBAL. CLENCHING JAW TOGETHER, CAUSING AM AMOUNT BLOODY DRAINAGE FROM MOUTH, PO CARE PROVIDED. BP ELEVATED @210/99 GAVE HYDRALAZINE, DECREASED TO 186/101. RR 30 & SPO2 @88% ON RA, PLACED ON 3L O2 & SPO2 @91%. LUNGS DIM. TELE ST @105. CLINIMIX RUNNING @50ML/HR. CALL LIGHT & BED ALARM IN PLACE.
--- NOTE | 2021-01-08 13:58 | NUR ---
ORAL CARE PROVIDED TO PATIENT TOLERATED. MOUTH MOISTURIZER AND CHAPSTICK APPLIED.
--- NOTE | 2021-01-08 16:26 | NUR ---
PLAN OF CARE: SPOKE WITH THE FAMILY IN REGARDS TO THE PLAN OF CARE FOR THE PATIENT. THEY WISH TO PROCEED WITH ENTERAL FEEDING FOR 5-7 DAYS AND IF AFTER 5 DAYS THERE IS NO IMPROVEMENT TO DISCUSS HOSPICE CARE. THIS INFORMATION WAS RELAYED TO DR. ABURTO. NEW ORDERS RECEIVED.
--- NOTE | 2021-01-08 18:52 | NUR ---
LATE ENTRY: 17:30: NG PLACEMENT NOTIFIED BY RADIOLOGY THAT THE DOBHOFF WAS IN THE "MIDDLE OF THE STOMACH". VERIFIED WITH DR. ABURTO THAT USE OF THE DOBHOFF WAS OKAY. NEW ORDERS RECEIVED. WILL ALSO ENCOURAGE PATIENT TO LAY ON HER LEFT SIDE.
[2021-01-08 19:03] LABS: Source, Urine Catheter
[2021-01-08 19:07] LABS: Appearance, Urine Hazy (Clear); Bilirubin, Urine Neg (Neg); Blood, Urine 3+ (Neg); Color, Urine Yellow (P-Yellow); Glucose Qualitative, Urine Neg (Neg); Ketones, Urine Neg (Neg); Leukocyte Esterase, Urine 1+ (Neg); Nitrite, Urine Neg (Neg); Protein, Urine 2+ (Neg); Urobilinogen, Urine NORM (Normal)
[2021-01-08 19:22] LABS: Amorphous Light (0-Heavy); Bacteria Mod /hpf; Mucus Light (0-Heavy); Squamous Epithelial Cells Mod /hpf (Few)
--- NOTE | 2021-01-08 19:24 | NUR ---
will contact daughter for support.
--- NOTE | 2021-01-08 20:04 | NUR ---
END OF SHIFT SUMMARY: PATIENT CONTINUED TO BE NONRESPONSIVE TODAY. AT TIMES PATIENT WOULD HAVE HER EYES OPEN AND LOOK AROUND. UNABLE TO DETERMINE IF THE PATIENT WAS CONSCIENTIOUSLY TRACKING OR NOT. PATIENT CONTINUES TO HAVE ELEVATED BLOOD PRESSURES. BLOOD PRESSURE CONTROLLED WITH SCHEDULED MEDICATIONS TODAY. PATIENT WAS NOTED BY DR. ABURTO TO HAVE A MASS IN HER ABDOMEN. AFTER THE ABDOMINAL ULTRASOUND WAS PERFORMED, RESULTS WERE DISCUSSED WITH DR. MODI. NEW ORDERS RECEIVED. AFTER DE LEON CATHETER WAS PLACED, THE ABDOMEN WAS SOFT WITHOUT ANY MASS. PATIENT APPEARED TO HAVE INCREASED COMFORT. PATIENT'S FAMILY WAS AT BESIDE TODAY FOR A MEETING WITH THE MD. THEY WERE ABLE TO MAKE A DECISION AND THE PLAN OF CARE WAS UPDATED. SEE NURSE'S NOTE.
--- NOTE | 2021-01-09 03:27 | NUR ---
65 year old is NPO & dobhoff feeding tube was placed & tube feed of [employer] 1.2 currently running at 55 ml hr. 30 ml free water flush Q 4 hours. Tolerating tube feed. PT with minimal responsiveness. Does open eyes randomly & flicker of movement when asked to squeeze hand. MR I done recently poor quality due to movement showed several strokes. Sched lopresser for hypertension. Had acute urinary retention lee was placed. Continues on clinix overnight. o2 2l nc.
[2021-01-09 05:42] LABS: Hematocrit 38.2 % (33.0-51.0); Hemoglobin 12.6 g/dL (11.5-16.0); Mean Corpuscular HGB 30.7 pg (26.0-34.0); Mean Corpuscular Volume 93 fL (80-100); Mean Platelet Volume 9.9 fL (9.1-12.4); Platelet Count 262 K/mm3 (150-400); RDW Coefficient Variation 14.2 % (11.7-14.2); RDW Standard Deviation 48.4 fL (35.1-46.3); White Blood Cell Count 6.64 K/mm3 (4.00-11.30)
[2021-01-09 06:32] LABS: Alanine Aminotransfer (ALT/SGP 71 U/L (12-78); Albumin, Blood 2.9 g/dL (3.4-5.0); Albumin/Globulin Ratio 0.7 (0.8-1.8); Alk Phos 73 U/L (50-136); Anion Gap 8 mmol/L (6-16); Aspartate Aminotrans (AST/SGOT 26 U/L (12-37); Bilirubin, Total 0.6 mg/dL (0.1-1.0); Blood Urea Nitrogen 32 mg/dL (8-24); Bun/Creatinine Ratio 34.2 (12.0-20.0); CO2, Blood 21 mmol/L (21-32); Calcium, Blood 9.3 mg/dL (8.5-10.1); Chloride, Blood 111 mmol/L (98-108); Creatinine, Blood 0.94 mg/dL (0.40-1.00); Globulin, Blood 4.1 g/dL (2.2-4.0); Glomerular Filtration Rate >60 (60-); Glucose, Blood 190 mg/dL (70-99); Magnesium, Blood 2.3 mg/dL (1.6-2.4); Phosphorus, Blood 3.2 mg/dL (2.5-4.9); Potassium, Blood 3.7 mmol/L (3.5-5.5); Sodium, Blood 140 mmol/L (136-145)
[2021-01-09 06:33] LABS: BAND PERCENT MAN 43 % (0-8); BASOPHILS PERCENT MAN 0 % (0-2); EOSINOPHILS ABSOLUTE MAN 0.06 K/mm3 (0.00-0.68); EOSINOPHILS PERCENT MAN 1 % (0-6); LYMPHOCYTES ABSOLUTE MAN 0.86 K/mm3 (0.84-5.20); LYMPHOCYTES PERCENT MAN 13 % (21-46); MONOCYTES ABSOLUTE MAN 0.19 K/mm3 (0.16-1.47); MONOCYTES PERCENT MAN 3 % (4-13); NEUTROPHILS ABSOLUTE MAN 5.51 K/mm3 (1.96-9.15); SEG NEUTROPHILS PERCENT MAN 40 % (41-73); TOTAL CELLS COUNTED 100
--- NOTE | 2021-01-09 08:31 | NUR ---
Late Entry 01/08/21: Update 01/08/21: Family meeting today with Dr. Calderon at 2pm to discuss goals of care and options. Family is discussing hospice as an option. Will call them tomorrow morning to follow-up and offer support in planning.
[2021-01-09 12:10] LABS: ALDOS/RENIN RATIO 3.4 (0.0-30.0); ALDOSTERONE 1.7 ng/dL (0.0-30.0)
--- NOTE | 2021-01-09 18:02 | NUR ---
Update 01/09/21: Per chart review with Dr. Jain, family has opted for a trial of tube feeding for about five days to determine if there would be any improvement in the patient's mentation. At that juncture in time, we will decide if to transition to the hospice or continue with medical management.
--- NOTE | 2021-01-09 18:36 | NUR ---
END OF SHIFT SUMMARY: PATIENT APPEARED TO BE COMFORTABLE THROUGHOUT THE SHIFT. PATIENT'S EYES WERE OPEN MORE FREQUENTLY THAN YESTERDAY. IT DOES SEEM THAT SHE OPENS HER EYES WITH SOUND IN THE ROOM. UNABLE TO DETERMINE IF HER EYE MOVEMENT IS INTENTIONAL. PATIENT ALLOWED ORAL SUCTIONING FOLLOWING A COUGH AT ONE POINT DURING THE MORNING. FOLLOWING THIS, THE PATIENT DID NOT ALLOW ORAL CARE BEYOND HER TEETH AND KEPT THEM CLENCHED. PATIENT'S BLOOD PRESSURE WAS LOWER THAN YESTERDAY. SHE DID NOT REQUIRE ANY PRN MEDICATION TO IMPROVE HER BLOOD PRESSURE.
--- NOTE | 2021-01-10 03:23 | NUR ---
SHIFT SUMMARY PT MORE ALERT THIS EVENING. CONTINUES TO BE NONVERBAL BUT EYES OPEN AND PT TURNING HEAD TO FOLLOW STAFF IN THE ROOM. SODIUM DRAW THIS EVENING 142, NOTIFIED DR. HALL. NEW ORDERS TO INCREASE D5 INFUSION TO 100 ML/HR. INFUSION INCREASED. D5 RUNNING CONCURRENTLY WITH CLINIMIX. DE LEON CATH PATENT AND DRAINING. URINE DARK YELLOW. PT REMAINED ON 3.5 L VIA NC. O2 SATS 94%. DOBHOFF INTACT. CONTINUOUS FEEDS RUNNING AT GOAL RATE OF 65 ML/HR WITH 60 ML FLUSH Q 4 HRS. OTHERWISE NO ACUTE CHANGES. WILL CONTINUE TO MONITOR. BED ALARM ON FOR THE ENTIRE SHIFT AND CALL LIGHT WITHIN REACH.
[2021-01-10 05:47] LABS: Hematocrit 34.1 % (33.0-51.0); Hemoglobin 11.3 g/dL (11.5-16.0)
[2021-01-10 06:31] LABS: Albumin, Blood 2.3 g/dL (3.4-5.0); Anion Gap 9 mmol/L (6-16); Blood Urea Nitrogen 26 mg/dL (8-24); Bun/Creatinine Ratio 33.2 (12.0-20.0); CO2, Blood 23 mmol/L (21-32); Calcium, Blood 8.4 mg/dL (8.5-10.1); Chloride, Blood 108 mmol/L (98-108); Creatinine, Blood 0.78 mg/dL (0.40-1.00); Glomerular Filtration Rate >60 (60-); Glucose, Blood 175 mg/dL (70-99); Phosphorus, Blood 3.2 mg/dL (2.5-4.9); Potassium, Blood 3.3 mmol/L (3.5-5.5); Sodium, Blood 140 mmol/L (136-145)
--- NOTE | 2021-01-10 12:37 | NUR ---
Update 01/10/21: Per chart review with Dr. Wolf, trial of tube feeding will continue until early next week. Discharge planning and care coordination will continue dependent upon patient's condition at that time.
--- NOTE | 2021-01-10 12:54 | NUR ---
BLADDER SCAN COMPLETED. PT HAS DE LEON PLACEMENT CURRENTLY. BLADDER SCAN RESULT WAS ZERO.
--- NOTE | 2021-01-10 15:46 | NUR ---
POTENTIAL DOBHOFF DISPLACEMENT THIS RN NOTIFIED BY FACILITIES SPECIALIST AND ASSISTING RN THAT PT'S NOSE TAPE BECAME DISPLACED AND PT STARTED COUGHING UP SOME FLUID. THIS RN ASSESSED PT AND SUCTIONED PT. SATURATIONS WENT FROM 91% TO 94% AFTER SUCTION. SECUREMENT TAPE REPLACED TO NOSE AND DOBHOFF TUBING. CONTINUOUS FEEDING PAUSED. THIS RN CALLED DR. FREDERICK AND NOTIFIED OF EVENT AND POTENTIAL FOR DOBHOFF DISPLACEMENT. ORDERS OBTAINED FOR CXR TO RE-VERIFY TUBE. PT IS IN SEMI-GALLEGOS'S POSITION WITH FACILITIES SPECIALIST AT BEDSIDE. PT IS NO LONGER COUGHING AT THIS TIME. THIS RN WILL CONTINUE TO MONITOR PT STATUS.
--- NOTE | 2021-01-10 16:11 | NUR ---
SHIFT SUMMARY PT IS AO TO SELF, NONVERBAL. PT HAS MINIMAL EYE TRACKING THIS MELANIE. PT REMAINS ON 3.5 L O2 VIA NC. PT HAD POSSIBLE EPISODE OF ASPIRATION OR MUCOUS PRODUCTION THIS MELANIE WITH STABLE SATS-SEE NOTE. DOBHOFF PLACEMENT RE-VERIFIED WITH CXR THIS SHIFT. PT DENIES PAIN, N/V. PT CONTINUOUS FEEDS RAN T/O SHIFT. PT REFUSES ORAL CARE AND SUCTIONING THIS SHIFT. PT IS IN BED, CALL LIGHT IN REACH, BED IN LOW POSITION.
[2021-01-11 06:02] LABS: Hematocrit 35.5 % (33.0-51.0); Hemoglobin 11.9 g/dL (11.5-16.0)
[2021-01-11 06:30] LABS: Albumin, Blood 2.3 g/dL (3.4-5.0); Anion Gap 7 mmol/L (6-16); Blood Urea Nitrogen 16 mg/dL (8-24); CO2, Blood 26 mmol/L (21-32); Calcium, Blood 8.2 mg/dL (8.5-10.1); Chloride, Blood 98 mmol/L (98-108); Glomerular Filtration Rate >60 (60-); Glucose, Blood 252 mg/dL (70-99); Magnesium, Blood 1.7 mg/dL (1.6-2.4); Phosphorus, Blood 3.3 mg/dL (2.5-4.9); Potassium, Blood 3.6 mmol/L (3.5-5.5); Sodium, Blood 131 mmol/L (136-145)
--- NOTE | 2021-01-11 08:01 | NUR ---
NO CHANGES. VSS.
--- NOTE | 2021-01-11 08:11 | NUR ---
CORRESPONDENCE WITH PHYSICIAN 0650: SPOKE TO DR. HALL ON TELEPHONE, WITH ORDERS TO REDUCE FLUSH FOR THE TUBE FEEDING TO 50MLS EVERY 6 HRS. SODIUM AND LIVER FUNCTION TESTS AT 3PM, REQUESTING A CALL TO DR. HALL WITH RESULTS BY 4PM. D/C D5 IV INFUSION.
[2021-01-11 15:48] LABS: Albumin, Blood 2.3 g/dL (3.4-5.0); Albumin/Globulin Ratio 0.6 (0.8-1.8); Bilirubin, Direct 0.1 mg/dL (0.0-0.3); Bilirubin, Indirect 0.2 mg/dL (0.1-0.7); Bilirubin, Total 0.3 mg/dL (0.1-1.0); Globulin, Blood 3.9 g/dL (2.2-4.0); Total Protein, Blood 6.2 g/dL (6.4-8.2)
--- NOTE | 2021-01-11 18:37 | NUR ---
SHIFT SUMMARY: NO ACUTE EVENTS. AWAKE THIS MORNING, NON VERBAL, UNABLE TO FOLLOW COMMANDS, EYES TRACKING WNL, MINIMAL SPONTANEOUS MOVEMENT IN L HAND. NO EVENTS ON TELEMETRY, SR 86. DE LEON DRAINING CLEAR YELLOW URINE. SMALL BORE NGT AT 65 CM, DRESSING CHANGED. JEVITY INFUSING AT 65 ML/HR WITH FWF 50 ML [id number]. OXYGEN AT 3 L/MIN NC. GAVE BRIEF UPDATE ON PT CONDITION EARLIER; ASKED DR. FREDERICK TO CALL WITH UPDATE WELL. NON COOPERATIVE WITH ORAL CARE.
[2021-01-12 06:10] LABS: Hematocrit 34.5 % (33.0-51.0); Hemoglobin 11.5 g/dL (11.5-16.0)
[2021-01-12 06:56] LABS: Albumin, Blood 2.2 g/dL (3.4-5.0); Anion Gap 7 mmol/L (6-16); Blood Urea Nitrogen 17 mg/dL (8-24); Bun/Creatinine Ratio 24.3 (12.0-20.0); CO2, Blood 26 mmol/L (21-32); Calcium, Blood 8.6 mg/dL (8.5-10.1); Chloride, Blood 98 mmol/L (98-108); Glomerular Filtration Rate >60 (60-); Glucose, Blood 234 mg/dL (70-99); Phosphorus, Blood 3.8 mg/dL (2.5-4.9); Potassium, Blood 3.9 mmol/L (3.5-5.5); Sodium, Blood 131 mmol/L (136-145)
--- NOTE | 2021-01-12 07:13 | NUR ---
SHIFT SUMMARY PT IS ON 3.5 LPM O2 VIA NC. NON-VERBAL, BUT DOES MOAN WITH REPOSITIONING AND CLENCHES HER JAW WHEN STAFF IS TRYING TO SUCCTION HER MOUTH. OCCASSIONAL COUGH. TF RUNNING THROUGH NG TUBE AT 65 ML/HR. IV ACCESS IN RFA POWERGLIDE FLUSHES BUT DOESN'T DRAW FOR LABS. REPOSITIONING EVERY 2 HRS, ELEVATING LEFT HAND TO REDUCE SWELLING. THE EDEMA IN LEFT HAND HAS REDUCED SLIGHTLY.
--- NOTE | 2021-01-12 20:27 | NUR ---
SHIFT SUMMARY: MENTAL STATUS HAS IMPROVED FROM YESTERDAY; ABLE TO MOVE BOTH HANDS AND BENT L KNEE WITHOUT PROMPTING, EYES TRACKING BETTER. STILL CLENCHING TEETH DURING ORAL CARE, UNABLE TO CLEAN MOUTH PROPERLY. NO EVENTS ON TELEMETRY. O2 @ 3 L/MIN NC, BREATH SOUNDS DIM. HAD TWO LARGE LIQUID BM'S TODAY. NGT AT 65 CM, SECURED WITH TEGADERM. TOLERATING TF.
[2021-01-13 06:09] LABS: Hematocrit 35.4 % (33.0-51.0); Hemoglobin 11.7 g/dL (11.5-16.0)
[2021-01-13 06:36] LABS: Albumin, Blood 2.3 g/dL (3.4-5.0); Anion Gap 6 mmol/L (6-16); Blood Urea Nitrogen 16 mg/dL (8-24); Bun/Creatinine Ratio 22.3 (12.0-20.0); CO2, Blood 28 mmol/L (21-32); Calcium, Blood 8.8 mg/dL (8.5-10.1); Chloride, Blood 99 mmol/L (98-108); Creatinine, Blood 0.72 mg/dL (0.40-1.00); Glomerular Filtration Rate >60 (60-); Glucose, Blood 253 mg/dL (70-99); Phosphorus, Blood 3.6 mg/dL (2.5-4.9); Potassium, Blood 4.1 mmol/L (3.5-5.5); Sodium, Blood 133 mmol/L (136-145)
--- NOTE | 2021-01-13 06:50 | NUR ---
SHIFT SUMMARY PT HAS BEEN SHOWING MORE MOVEMENT OF HER EXTREMITIES. SHE IS MOANING IN RESPONSE TO QUESTIONS, BUT NOT CONSISTENTLY. SHE DOES NOT APPEAR IN DISTRESS OR DISCOMFORT. WITH NC AT 3LPM, MAINTAINING SATS ABOVE 90%. TELE SHOWS NSR IN THE 80'S. ABLE TO DO THOROUGH ORAL CARE, PT OPENED HER MOUTH TODAY FOR SUCTIONING, WHILE SHE TYPICALLY CLENCHES HER JAW. TF VIA NG TUBE AT 65ML/HR, WITH 50 ML FLUSH Q 6HRS. WILL CONTINUE TO MONITOR AND GIVE REPORT TO ONCOMING NURSE.
--- NOTE | 2021-01-13 19:21 | NUR ---
SHIFT SUMMARY PT AxOx0. PT NON VERBAL AND BEDBOUND R/T CVA. GROSS RLE MOVEMENT NOTED, BUT WEAK. LLE AND BUE FLACCID. PT/OT CONSULTED. PT TRACKS MOVEMENT WITH EYES, BUT DOES NOT FOLLOW DIRECTION. CLENCHES JAW FOR ORAL CARE. DE LEON CATH DRAINING PATENT TO GRAVITY. PT HAD LARGE LIQUID BM TODAY. NG TUBE FEEDINGS AT GOAL RATE OF JEVITY FORMULA. Q2 TURNS AND ALT FLOATING HIPS/EXTREMITIES. PT CURRENTLY RESTING IN BED WITH CALL LIGHT NEARBY. PT APPEARS COMFORTABLE. CALLED FOR UPDATE THIS EVENING.
[2021-01-14 05:26] LABS: Hematocrit 37.3 % (33.0-51.0); Hemoglobin 12.4 g/dL (11.5-16.0)
[2021-01-14 06:09] LABS: Albumin, Blood 2.6 g/dL (3.4-5.0); Anion Gap 6 mmol/L (6-16); Blood Urea Nitrogen 16 mg/dL (8-24); Bun/Creatinine Ratio 21.5 (12.0-20.0); CO2, Blood 29 mmol/L (21-32); Calcium, Blood 9.3 mg/dL (8.5-10.1); Chloride, Blood 98 mmol/L (98-108); Creatinine, Blood 0.75 mg/dL (0.40-1.00); Glomerular Filtration Rate >60 (60-); Glucose, Blood 178 mg/dL (70-99); Magnesium, Blood 2.2 mg/dL (1.6-2.4); Phosphorus, Blood 4.1 mg/dL (2.5-4.9); Potassium, Blood 4.2 mmol/L (3.5-5.5); Sodium, Blood 133 mmol/L (136-145)
--- NOTE | 2021-01-14 06:24 | NUR ---
SHIFT SUMMARY PT PULLED FEEDING TUBE THIS SHIFT, WAS IN PLACE @ 2100 WHEN THIS RN ASSESSED, @ 2215 PT HAD PULLED. ATTEMPTED TO INSERT NEW DOBHOFF, PT TURNED HEAD AWAY, WAS TEARFUL AND RAISING R ARM ATTEMPTING TO BLOCK ATTEMPT. TUBE NOT PLACED. PT THEN APPEARED TO SLEEP COMFORTABLY T/O SHIFT, REPOS Q2, NO INDICATIONS OF PAIN/DISCOMFORT, SLEEPING AT THIS TIME, CALL LIGHT IN REACH, BED ALARM ACTIVE, WILL CONT TO MONITOR UNTIL REPORT GIVEN TO DAY RN.
--- NOTE | 2021-01-14 08:38 | NUR ---
Late Entry Copied From EMR Update 01/13/21: Per chart review, Dr. Wolf spoke with the patients family yesterday. They were anticipating discharge to home on hospice early next week if there is no meaningful recovery. There does seem to be some improvement in eye movements today, but quadraplegia remains. Will review chart with Dr. Angeles tomorrow in the am and follow-up with the family as indicated.
--- NOTE | 2021-01-14 17:20 | NUR ---
See Palliative Conference note. Pt to d/c home from hospital tomorrow evening, with hospice admission the next day.
--- NOTE | 2021-01-14 19:23 | NUR ---
SHIFT SUMMARY PT WITH MINIMAL RESPONSE. STAFF VISITOR IN ROOM REPORTED PT TURNED HEAD TO NAME CALLED. AT OTHER TIMES PT UNRESPONSIVE TO ANY VERBAL CALLS OR STIMULI. HEARD GRUNTING OR MOANING SEVERAL TIMES THROUGH THE DAY. PASSIVE ROM PERFORMED TWICE TO EXTREMITIES. DOBHOFF REPLACEMENT HELD TIL FAMILY DECIDED TO NOT REPLACE IT.
--- NOTE | 2021-01-15 03:33 | NUR ---
SHIFT SUMMARY PT IS MINIMALLY RESPONSIVE MOST OF THE SHIFT. DURING MY ASSESSMENT PT DID MAKE EYE CONTACT WITH ME WHEN HER NAME WAS CALLED. HOWEVER, PT JUST MOANS AND MAKE INCOMPRENSIBLE SOUNDS. MOVES LEFT ARM MINIMALLY. BLE ARE FLACCID. PT APPEARS COMFORTABLE IN BED, REPOSITIONING Q 2HR. NPO AT THIS TIME AWAITING FAMILY'S DECISION ON TUBE PLACEMENT FOR FEEDS. DE LEON IN PLACE PATENT AND DRAINING. PT HYPERTENSIVE BUT NO COVERAGE PER PARAMETERS ORDERED. NO ACUTE CHANGES OVERNIGHT. BED IN LOWEST POSITION, CALL LIGHT WITHIN REACH.
[2021-01-15 05:10] LABS: Hematocrit 38.4 % (33.0-51.0); Hemoglobin 12.6 g/dL (11.5-16.0)
[2021-01-15 05:44] LABS: Albumin, Blood 2.7 g/dL (3.4-5.0); Anion Gap 8 mmol/L (6-16); Blood Urea Nitrogen 22 mg/dL (8-24); Bun/Creatinine Ratio 25.1 (12.0-20.0); CO2, Blood 28 mmol/L (21-32); Chloride, Blood 100 mmol/L (98-108); Creatinine, Blood 0.88 mg/dL (0.40-1.00); Glomerular Filtration Rate >60 (60-); Glucose, Blood 150 mg/dL (70-99); Magnesium, Blood 2.3 mg/dL (1.6-2.4); Phosphorus, Blood 4.9 mg/dL (2.5-4.9); Potassium, Blood 4.1 mmol/L (3.5-5.5); Sodium, Blood 136 mmol/L (136-145)
--- NOTE | 2021-01-15 13:17 | NUR ---
Update 01/15/21: Pt. scheduled for transport and same day admit to hospice today at 3:30 pm. Family is aware of details. [facility] has made all other arrangements including DME delivery. Dr. Angeles signed hospice paperwork this morning. POLST updated. No further needs at this time. [facility] team will follow-up with family within 24-48 hours after discharge to ensure they have everything they need and offer an appt. with PCP to discuss care if needed. Update 01/14/21: Received call that pt. had pulled out her dobhoff this afternoon. I contacted Dr. Angeles to discuss care. Patient's condition is not improving. Requested palliative care to contact patients family and discuss the option of hospice further. Per Dr. Angeles, requested hospital staff to hold of on replacing the dobhoff at this time. Palliative care nurse Alison spoke with family and they would like to take pt. home on hospice. Family was given choice of hospice providers and chose [facility] due to their availability to admit pt. to hospice on 01/15/21. [facility] hospice scheduled transport for 01/15/21 at 3:30pm. Family has been notified. [facility] hospice will be meeting with family at their home after patient arrives.
[2021-01-15] MEDS ORDERED: HYOS.125 PO (15:15)
[2021-01-15] MEDS ORDERED: MORP20L SL (15:16)
[2021-01-15] MEDS ORDERED: LORA.5 PO (15:17)
--- NOTE | 2021-01-15 17:05 | NUR ---
DISCHARGE INSTRUCTIONS COMPLETED. PT LEAVING ON HOSPICE. [facility] PICKED PT UP AT 1545. TO [facility]IA GURNEY.
== END 2021-01-15 16:03 | disposition hospice, home (50) | DRG 64 ==
LOC: ER 11:32 → ERHOLD 14:34 → MEDS 14:34 → ICUE 12-28 14:37 → MEDS 12-28 14:55 → ICUE 12-29 11:58 → MEDS 12-31 08:54
PROVIDERS: Family Medicine; Hospitalist; Internal Medicine; Internal Medicine Nephrology; Physician Assistant; Student in an Organized Health Care Education/Training Program; ADMIT Internal Medicine
PROC: 0DH67UZ Insertion of Feeding Device into Stomach, Via Natural or Artificial Opening (ICD-10-PCS; principal; 2021-01-08)
PROC: 3E0G76Z Introduction of Nutritional Substance into Upper GI, Via Natural or Artificial Opening (ICD-10-PCS; 2021-01-08)
DX: I63.89 Other cerebral infarction (principal); G83.5 Locked-in state; U07.1 COVID-19; J12.82 Pneumonia due to coronavirus disease 2019; G93.41 Metabolic encephalopathy; G82.50 Quadriplegia, unspecified; Z66 Do not resuscitate; E22.2 Syndrome of inappropriate secretion of antidiuretic hormone; G37.8 Other specified demyelinating diseases of central nervous system; I16.1 Hypertensive emergency; N39.0 Urinary tract infection, site not specified; N17.9 Acute kidney failure, unspecified; R47.01 Aphasia; B95.4 Other streptococcus as the cause of diseases classified elsewhere; R63.1 Polydipsia; E87.6 Hypokalemia; R33.9 Retention of urine, unspecified; R79.89 Other specified abnormal findings of blood chemistry; R47.1 Dysarthria and anarthria; R13.10 Dysphagia, unspecified; R27.0 Ataxia, unspecified; E88.09 Other disorders of plasma-protein metabolism, not elsewhere classified; E78.5 Hyperlipidemia, unspecified; J44.9 Chronic obstructive pulmonary disease, unspecified; E83.39 Other disorders of phosphorus metabolism; I12.9 Hypertensive chronic kidney disease with stage 1 through stage 4 chronic kidney disease, or unspecified chronic kidney disease; N18.9 Chronic kidney disease, unspecified; Z90.710 Acquired absence of both cervix and uterus; Z88.1 Allergy status to other antibiotic agents; Z88.8 Allergy status to other drugs, medicaments and biological substances; Z79.899 Other long term (current) drug therapy; Z79.82 Long term (current) use of aspirin
CPT/HCPCS: 36415; 36600; 51702; 51798; 70450; 70470; 70551; 71045; 71260; 76705; 80048; 80053; 80069; 80076; 81001; 82088; 82248; 82533; 82803; 83735; 83930; 83935; 84100; 84244; 84295; 84300; 84443; 85014; 85018; 85025; 87077; 87086; 87186; 92526; 92610; 93005; 93010; 93306; 93975; 96374-59; 96375; 96375-59; 96376-59; 97110; 97162; 97530; 99285-25; A9270; C1751; C9113; J0360; J0696; J1650; J2597; J2930; J3480; J7030; J7040; J7050; J7070; J7131; Q9967